=== PATIENT | male | born 1975 | race African-American/Black ===

== ENCOUNTER 2023-04-04 11:38 | Inpatient (IN) | payer OTHER ==
--- NOTE | 2023-04-04 13:07 | ED ---
Psych HPI - General Chief Complaint: Psychiatric Symptoms Stated Complaint: mental health Time Seen by Provider: 04/04/23 12:29 Source: police Mode of arrival: ambulatory - History of Present Illness Initial Comments: Patient is a 47-year-old man who is brought to emergency department to have psychiatric evaluation. The patient himself denies any complaints. He denies having depressed mood. Patient denies having suicidal or homicidal ideation. He states he would like to have reevaluation and go home Complaint: other -: days(s) Associated Psychiatric Symptoms: none Improves With: none Worsens With: none Associated Symptoms: denies other symptoms - Related Data Previous Rx's Medication Instructions Recorded OLANZapine ODT [ZyPREXA Zydis] 10 mg PO BID 30 Days #60 tab 04/09/23 Allergies Allergy/AdvReac Type Severity Reaction Status Date / Time Penicillins Allergy Unknown Verified 04/04/23 12:56 Childhood Pork/Porcine Containing Allergy Unknown Verified 04/04/23 12:56 Products [Pork] Review of Systems ROS Statement: Those systems with pertinent positive or pertinent negative responses have been documented in the HPI. ROS Other: All systems not noted in ROS Statement are negative. Constitutional: Denies: fever, chills Respiratory: Denies: cough, dyspnea Cardiovascular: Denies: chest pain, palpitations, syncope Gastrointestinal: Denies: abdominal pain, vomiting, diarrhea Genitourinary: Denies: dysuria, frequency Musculoskeletal: Denies: back pain Skin: Denies: rash Neurological: Denies: headache, weakness, numbness Past Medical History Past Medical History: No Reported History History of Any Multi-Drug Resistant Organisms: None Reported Past Surgical History: No Surgical Hx Reported Past Anesthesia/Blood Transfusion Reactions: No Reported Reaction Past Psychological History: No Psychological Hx Reported Smoking Status: Never smoker Past Alcohol Use History: None Reported Past Drug Use History: None Reported General Exam Limitations: no limitations General appearance: alert, in no apparent distress Head exam: Present: atraumatic, normocephalic Eye exam: Present: normal appearance. Absent: scleral icterus, conjunctival injection Neck exam: Present: normal inspection Respiratory exam: Present: normal lung sounds bilaterally. Absent: respiratory distress, wheezes, rales, rhonchi, stridor, accessory muscle use Cardiovascular Exam: Present: regular rate, normal rhythm, normal heart sounds. Absent: systolic murmur, diastolic murmur, rubs, gallop GI/Abdominal exam: Present: soft. Absent: distended, tenderness, guarding, rebound, rigid Extremities exam: Present: normal inspection, normal capillary refill. Absent: pedal edema, calf tenderness Back exam: Present: normal inspection. Absent: CVA tenderness (R), CVA tenderness (L) Neurological exam: Present: alert, oriented X3 Psychiatric exam: Absent: depressed, agitated, anxious, flat affect, homicidal ideation, suicidal ideation Skin exam: Present: warm, dry, intact, normal color. Absent: rash Course Vital Signs 04/04/23 04/04/23 04/04/23 11:42 15:00 17:57 Temperature 98.2 F Pulse Rate 100 94 Respiratory 20 18 20 Rate Blood Pressure 161/105 159/80 O2 Sat by Pulse 99 99 Oximetry Medical Decision Making - Medical Decision Making Was pt. sent in by a medical professional or institution (, PA, CARDIOTHORACIC SURGEON, urgent care, hospital, or [facility]...) When possible be specific @ -[No] Did you speak to anyone other than the patient for history (EMS, parent, family, police, friend...)? What history was obtained from this source @ -[No] Did you review nursing and triage notes (agree or disagree)? Why? @ -[I reviewed and agree with nursing and triage notes] Were old charts reviewed (outside hosp., previous admission, EMS record, old EKG , old radiological studies, urgent care reports/EKG's, [facility] records)? Report findings @ -[No old charts were reviewed] Differential Diagnosis (chest pain, altered mental status, abdominal pain women, abdominal pain men, vaginal bleeding, weakness, fever, dyspnea, syncope, headache, dizziness, GI bleed, back pain, seizure, CVA, palpatations, mental hea lth, musculoskeletal)? @ -[Differential Mental Health Depression, anxiety, bipolar, psychosis, schizophrenia, borderline personality, situational depression, adjustment disorder, behavioral disorder, brain tumor, malingering, substance abuse, encephalopathy, medication reaction, dementia, hypothyroidism, degenerative neurologic disorder, lupus.... This is not meant to be all-inclusive list EKG interpreted by me (3pts min.). @ -[ X-rays interpreted by me (1pt min.). @ -[None done] CT interpreted by me (1pt min.). @ -[None done] U/S interpreted by me (1pt. min.). @ -[None done] What testing was considered but not performed or refused? (CT, X-rays, U/S, labs)? Why? @ -[None] What meds were considered but not given or refused? Why? @ -[None] Did you discuss the management of the patient with other professionals (professionals i.e. , PA, CARDIOTHORACIC SURGEON, lab, RT, psych nurse, social worker aide, cable lacer, teacher, consumer loan officer, leather case finisher)? Give summary @ -[Case discussed with EPS personnel Was smoking cessation discussed for >3mins.? @ -[No] Was critical care preformed (if so, how long)? @ -[No] Were there social determinants of health that impacted care today? How? (Homelessness, low income, unemployed, alcoholism, drug addiction, transportation, low edu. Level, literacy, decrease access to med. care, custodial, rehab)? @ -[No] Was there de-escalation of care discussed even if they declined (Discuss DNR or withdrawal of care, Hospice)? DNR status @ -[No] What co-morbidities impacted this encounter? (DM, HTN, Smoking, COPD, CAD, Cancer, CVA, ARF, Chemo, Hep., AIDS, mental health diagnosis, sleep apnea, morbid obesity)? @ -[None] Was patient admitted / discharged? Hospital course, mention meds given and route, prescriptions, significant lab abnormalities, going to OR and other pertinent info. @ -[The patient will be admitted for further psychiatric care Undiagnosed new problem with uncertain prognosis? @ -[No] Drug Therapy requiring intensive monitoring for toxicity (Heparin, Nitro, Insulin, Cardizem)? @ -[No] Were any procedures done? @ -[No] Diagnosis/symptom? @ -[Acute psychosis Acute, or Chronic, or Acute on Chronic? @ -[default] Uncomplicated (without systemic symptoms) or Complicated (systemic symptoms)? @ -[Uncomplicated Side effects of treatment? @ -[No] Exacerbation, Progression, or Severe Exacerbation? @ -[No] Poses a threat to life or bodily function? How? (Chest pain, [place], [place], pneumonia, PE, COPD, DKA, ARF, appy, cholecystitis, CVA, Diverticulitis, Homicidal, Suicidal, threat to staff... and all critical care pts) @ -[No] - Lab Data Result diagrams: 04/04/23 15:59 04/04/23 15:59 Lab Results 04/04/23 04/04/23 04/04/23 Range/Units 15:59 15:59 15:59 WBC 6.5 (3.8-10.6) k/uL RBC 4.95 (4.30-5.90) m/uL Hgb 14.3 (13.0-17.5) gm/dL Hct 44.3 (39.0-53.0) % MCV 89.4 (80.0-100.0) fL MCH 28.8 (25.0-35.0) pg MCHC 32.2 (31.0-37.0) g/dL RDW 13.6 (11.5-15.5) % Plt Count 244 (150-450) k/uL MPV 7.4 Neutrophils % 63 % Lymphocytes % 25 % Monocytes % 6 % Eosinophils % 4 % Basophils % 0 % Neutrophils # 4.1 (1.3-7.7) k/uL Lymphocytes # 1.6 (1.0-4.8) k/uL Monocytes # 0.4 (0-1.0) k/uL Eosinophils # 0.3 (0-0.7) k/uL Basophils # 0.0 (0-0.2) k/uL Hypochromasia Slight Sodium 136 L (137-145) mmol/L Potassium 4.6 (3.5-5.1) mmol/L Chloride 104 (98-107) mmol/L Carbon Dioxide 24 (22-30) mmol/L Anion Gap 8 mmol/L BUN 16 (9-20) mg/dL Creatinine 0.91 (0.66-1.25) mg/dL Est GFR (CKD-EPI)AfAm >90 (>60 ml/min/1.73 sqM) Est GFR (CKD-EPI)NonAf >90 (>60 ml/min/1.73 sqM) Glucose 142 H (74-99) mg/dL Calcium 9.1 (8.4-10.2) mg/dL Total Bilirubin 0.4 (0.2-1.3) mg/dL AST 41 (17-59) U/L ALT 34 (4-49) U/L Alkaline Phosphatase 66 (38-126) U/L Total Protein 7.8 (6.3-8.2) g/dL Albumin 4.2 (3.5-5.0) g/dL Urine Color Urine Appearance (Clear) Urine pH (5.0-8.0) Ur Specific [place] (1.001-1.035) Urine Protein (Negative) Urine Glucose (UA) (Negative) Urine Ketones (Negative) Urine Blood (Negative) Urine Nitrite (Negative) Urine Bilirubin (Negative) Urine Urobilinogen (<2.0) mg/dL Ur Leukocyte Esterase (Negative) Urine Opiates Screen (NotDetected) Ur Oxycodone Screen (NotDetected) Urine Methadone Screen (NotDetected) Ur Propoxyphene Screen (NotDetected) Ur Barbiturates Screen (NotDetected) U Tricyclic Antidepress (NotDetected) Ur Phencyclidine Scrn (NotDetected) Ur Amphetamines Screen (NotDetected) U Methamphetamines Scrn (NotDetected) U Benzodiazepines Scrn (NotDetected) Urine Cocaine Screen (NotDetected) U Marijuana (THC) Screen (NotDetected) Coronavirus (PCR) Not Detected (Not Detectd) 04/04/23 04/04/23 Range/Units 16:29 16:29 WBC (3.8-10.6) k/uL RBC (4.30-5.90) m/uL Hgb (13.0-17.5) gm/dL Hct (39.0-53.0) % MCV (80.0-100.0) fL MCH (25.0-35.0) pg MCHC (31.0-37.0) g/dL RDW (11.5-15.5) % Plt Count (150-450) k/uL MPV Neutrophils % % Lymphocytes % % Monocytes % % Eosinophils % % Basophils % % Neutrophils # (1.3-7.7) k/uL Lymphocytes # (1.0-4.8) k/uL Monocytes # (0-1.0) k/uL Eosinophils # (0-0.7) k/uL Basophils # (0-0.2) k/uL Hypochromasia Sodium (137-145) mmol/L Potassium (3.5-5.1) mmol/L Chloride (98-107) mmol/L Carbon Dioxide (22-30) mmol/L Anion Gap mmol/L BUN (9-20) mg/dL Creatinine (0.66-1.25) mg/dL Est GFR (CKD-EPI)AfAm (>60 ml/min/1.73 sqM) Est GFR (CKD-EPI)NonAf (>60 ml/min/1.73 sqM) Glucose (74-99) mg/dL Calcium (8.4-10.2) mg/dL Total Bilirubin (0.2-1.3) mg/dL AST (17-59) U/L ALT (4-49) U/L Alkaline Phosphatase (38-126) U/L Total Protein (6.3-8.2) g/dL Albumin (3.5-5.0) g/dL Urine Color Yellow Urine Appearance Clear (Clear) Urine pH 5.5 (5.0-8.0) Ur Specific [place] 1.025 (1.001-1.035) Urine Protein Negative (Negative) Urine Glucose (UA) Negative (Negative) Urine Ketones Negative (Negative) Urine Blood Negative (Negative) Urine Nitrite Negative (Negative) Urine Bilirubin Negative (Negative) Urine Urobilinogen <2.0 (<2.0) mg/dL Ur Leukocyte Esterase Negative (Negative) Urine Opiates Screen Not Detected (NotDetected) Ur Oxycodone Screen Not Detected (NotDetected) Urine Methadone Screen Not Detected (NotDetected) Ur Propoxyphene Screen Not Detected (NotDetected) Ur Barbiturates Screen Not Detected (NotDetected) U Tricyclic Antidepress Not Detected (NotDetected) Ur Phencyclidine Scrn Not Detected (NotDetected) Ur Amphetamines Screen Not Detected (NotDetected) U Methamphetamines Scrn Not Detected (NotDetected) U Benzodiazepines Scrn Not Detected (NotDetected) Urine Cocaine Screen Not Detected (NotDetected) U Marijuana (THC) Screen Not Detected (NotDetected) Coronavirus (PCR) (Not Detectd) Disposition Clinical Impression: Acute psychosis Disposition: ADMITTED IP TO THIS [facility] Condition: Stable Is patient prescribed a controlled substance at d/c from ED?: No
[2023-04-04 16:07] LABS: Basophils % (A) 0 %; Eosinophils # (A) 0.3 k/uL (0-0.7); Eosinophils % (A) 4 %; HCT 44.3 % (39.0-53.0); HGB 14.3 gm/dL (13.0-17.5); Hypochromasia Slight; Lymphocytes # (A) 1.6 k/uL (1.0-4.8); Lymphocytes % (A) 25 %; MCH 28.8 pg (25.0-35.0); MCHC 32.2 g/dL (31.0-37.0); MCV 89.4 fL (80.0-100.0); Mean Platelet Volume 7.4; Monocytes # (A) 0.4 k/uL (0-1.0); Monocytes % (A) 6 %; Neutrophils # (A) 4.1 k/uL (1.3-7.7); Neutrophils % (A) 63 %; Platelet Count 244 k/uL (150-450); RBC 4.95 m/uL (4.30-5.90); RDW 13.6 % (11.5-15.5); WBC 6.5 k/uL (3.8-10.6)
[2023-04-04 16:28] LABS: ALT 34 U/L (4-49); AST 41 U/L (17-59); African American GFR (CKD) >90 (>60 ml/min/1.73 sqM); Albumin 4.2 g/dL (3.5-5.0); Alkaline Phosphatase 66 U/L (38-126); Anion Gap 8 mmol/L; Blood Urea Nitrogen 16 mg/dL (9-20); Calcium 9.1 mg/dL (8.4-10.2); Carbon Dioxide 24 mmol/L (22-30); Chloride 104 mmol/L (98-107); Glucose 142 mg/dL (74-99); Non-African American GFR(CKD) >90 (>60 ml/min/1.73 sqM); Potassium 4.6 mmol/L (3.5-5.1); Sodium 136 mmol/L (137-145); Total Bilirubin 0.4 mg/dL (0.2-1.3); Total Protein 7.8 g/dL (6.3-8.2)
[2023-04-04 16:44] LABS: Appearance,Urine Clear (Clear); Bilirubin,Urine Negative (Negative); Blood,Urine Negative (Negative); Color,Urine Yellow; Glucose,Urine (UA) Negative (Negative); Ketones,Urine Negative (Negative); Leukocyte Esterase,Urine Negative (Negative); Nitrite,Urine Negative (Negative); PH, Urine 5.5 (5.0-8.0); Protein,Urine Negative (Negative); Specific Gravity,Urine 1.025 (1.001-1.035); Urobilinogen,Urine <2.0 mg/dL (<2.0)
[2023-04-04 16:53] LABS: Amphetamine Screen,Urine Not Detected (NotDetected); Barbiturate Screen,Urine Not Detected (NotDetected); Benzodiazepines Screen,Urine Not Detected (NotDetected); Cocaine Screen,Urine Not Detected (NotDetected); Methadone Screen, Urine Not Detected (NotDetected); Opiate Screen,Urine Not Detected (NotDetected); Oxycodone Screen, Urine Not Detected (NotDetected); Phencyclidine Screen,Urine Not Detected (NotDetected); Tricyclic Antidepressant,Urine Not Detected (NotDetected); Urn Cannabinoid Scrn Not Detected (NotDetected)
[2023-04-04] MEDS ORDERED: LORazepam 1 MG TAB PO STA (17:52)
[2023-04-04] MEDS ORDERED: MAGNESIUM HYDROXIDE 2,400 MG/30 ML CUP PO PRN (17:59)
[2023-04-04] MEDS ORDERED: MAG HYDROX/AL HYDROX/SIMETH 30 ML CUP PO PRN (17:59)
[2023-04-04] MEDS ORDERED: ACETAMINOPHEN TAB 325 MG TAB PO PRN (17:59)
[2023-04-04] MEDS ORDERED: LORazepam 2 MG/ML INJ IM PRN (18:03)
[2023-04-04] MEDS ORDERED: LORazepam 1 MG TAB PO PRN (18:03)
[2023-04-04] MEDS ORDERED: HALOPERIDOL LACTATE 5 MG/ML 1 ML VIAL IM PRN (18:04)
[2023-04-04] MEDS ORDERED: haloperidoL 5 MG TAB PO PRN (18:05)
[2023-04-04 18:29] VITALS: RESP 16
--- NOTE | 2023-04-05 02:55 | P.CONS ---
History of Present Illness - Reason for Consult Consult date: 04/04/23 medical eval - Chief Complaint psych eval - History of Present Illness 47 year old male with no reported past medical history patient refused medical evaluation case discussed with RN and ED chart review done . patient has been disoriented and wandering around town , eventually was brought in by police for evaluation, patient denies any suicidal or homicidal ideation, but voiced paranoid del lusions about people trying to harm him . Review of systems unable to obtain patient refuse interview On physical exam patient declined Constitutional: No acute distress, patient well built , well nourished, uncooperative Skin: visible portion of the skin unremarkable Extremities: moving all extremities purposefully Psychiatric: Alert and oriented to person, place Past Medical History Past Medical History: No Reported History History of Any Multi-Drug Resistant Organisms: None Reported Past Surgical History: No Surgical Hx Reported Past Anesthesia/Blood Transfusion Reactions: No Reported Reaction Past Psychological History: No Psychological Hx Reported Smoking Status: Never smoker Past Alcohol Use History: None Reported Past Drug Use History: None Reported Medications and Allergies Home Medications Medication Instructions Recorded Confirmed Type No Known Home Medications 04/04/23 04/04/23 History Allergies Allergy/AdvReac Type Severity Reaction Status Date / Time Penicillins Allergy Unknown Verified 04/04/23 12:56 Childhood Pork/Porcine Containing Allergy Unknown Verified 04/04/23 12:56 Products [Pork] Physical Exam Vitals: Vital Signs Temp Pulse Pulse Resp BP BP Pulse Ox 04/04/23 18:26 97.1 F L 79 16 164/87 99 04/04/23 17:57 94 20 159/80 99 04/04/23 15:00 18 04/04/23 11:42 98.2 F 100 20 161/105 99 Intake and Output 04/04/23 04/04/23 04/05/23 14:59 22:59 06:59 Other: Weight 113.398 kg Results CBC & Chem 7: 04/04/23 15:59 04/04/23 15:59 Labs: Abnormal Lab Results - Last 24 Hours (Table) 04/04/23 Range/Units 15:59 Sodium 136 L (137-145) mmol/L Glucose 142 H (74-99) mg/dL Assessment and Plan Assessment: dellusional ideation psych eval pending blood work review showed unremarkable CBC Hgb 14.3, WBC 6.5 electrolytes unremarkable , Na 136, K 4.6 , BUN 16 , Cr 0.9 urine drug screen is negative UA unremarkable COVID negative thank you for this consultation
[2023-04-05] MEDS ORDERED: HALOPERIDOL LACTATE 5 MG/ML 1 ML VIAL IM STA (08:00)
[2023-04-05] MEDS ORDERED: LORazepam 2 MG/ML INJ IM STA (08:01)
--- NOTE | 2023-04-05 09:53 | P.HP ---
Psychiatric H&P - . H&P Date: 04/05/23 History & Physical: Allergies Allergy/AdvReac Type Severity Reaction Status Date / Time Penicillins Allergy Unknown Verified 04/04/23 12:56 Childhood Pork/Porcine Containing Allergy Unknown Verified 04/04/23 12:56 Products [Pork] Vital Signs Temp 99.4 F 04/05/23 06:47 Pulse 80 04/05/23 06:47 Resp 16 04/05/23 06:47 BP 127/62 04/05/23 06:47 Pulse Ox 99 04/04/23 18:26 FiO2 Intake & Output 04/04/23 04/05/23 04/05/23 18:59 06:59 18:59 Weight 113.398 kg 106.71 kg Laboratory Last Values WBC 6.5 k/uL (3.8-10.6) 04/04/23 15:59 RBC 4.95 m/uL (4.30-5.90) 04/04/23 15:59 Hgb 14.3 gm/dL (13.0-17.5) 04/04/23 15:59 Hct 44.3 % (39.0-53.0) 04/04/23 15:59 MCV 89.4 fL (80.0-100.0) 04/04/23 15:59 MCH 28.8 pg (25.0-35.0) 04/04/23 15:59 MCHC 32.2 g/dL (31.0-37.0) 04/04/23 15:59 RDW 13.6 % (11.5-15.5) 04/04/23 15:59 Plt Count 244 k/uL (150-450) 04/04/23 15:59 MPV 7.4 04/04/23 15:59 Neutrophils % 63 % 04/04/23 15:59 Lymphocytes % 25 % 04/04/23 15:59 Monocytes % 6 % 04/04/23 15:59 Eosinophils % 4 % 04/04/23 15:59 Basophils % 0 % 04/04/23 15:59 Neutrophils # 4.1 k/uL (1.3-7.7) 04/04/23 15:59 Lymphocytes # 1.6 k/uL (1.0-4.8) 04/04/23 15:59 Monocytes # 0.4 k/uL (0-1.0) 04/04/23 15:59 Eosinophils # 0.3 k/uL (0-0.7) 04/04/23 15:59 Basophils # 0.0 k/uL (0-0.2) 04/04/23 15:59 Hypochromasia Slight 04/04/23 15:59 Sodium 136 mmol/L (137-145) L 04/04/23 15:59 Potassium 4.6 mmol/L (3.5-5.1) 04/04/23 15:59 Chloride 104 mmol/L (98-107) 04/04/23 15:59 Carbon Dioxide 24 mmol/L (22-30) 04/04/23 15:59 Anion Gap 8 mmol/L 04/04/23 15:59 BUN 16 mg/dL (9-20) 04/04/23 15:59 Creatinine 0.91 mg/dL (0.66-1.25) 04/04/23 15:59 Est GFR (CKD-EPI)AfAm >90 (>60 ml/min/1.73 sqM) 04/04/23 15:59 Est GFR (CKD-EPI)NonAf >90 (>60 ml/min/1.73 sqM) 04/04/23 15:59 Glucose 142 mg/dL (74-99) H 04/04/23 15:59 Calcium 9.1 mg/dL (8.4-10.2) 04/04/23 15:59 Total Bilirubin 0.4 mg/dL (0.2-1.3) 04/04/23 15:59 AST 41 U/L (17-59) 04/04/23 15:59 ALT 34 U/L (4-49) 04/04/23 15:59 Alkaline Phosphatase 66 U/L (38-126) 04/04/23 15:59 Total Protein 7.8 g/dL (6.3-8.2) 04/04/23 15:59 Albumin 4.2 g/dL (3.5-5.0) 04/04/23 15:59 Urine Color Yellow 04/04/23 16:29 Urine Appearance Clear (Clear) 04/04/23 16:29 Urine pH 5.5 (5.0-8.0) 04/04/23 16:29 Ur Specific [place] 1.025 (1.001-1.035) 04/04/23 16:29 Urine Protein Negative (Negative) 04/04/23 16:29 Urine Glucose (UA) Negative (Negative) 04/04/23 16:29 Urine Ketones Negative (Negative) 04/04/23 16:29 Urine Blood Negative (Negative) 04/04/23 16:29 Urine Nitrite Negative (Negative) 04/04/23 16:29 Urine Bilirubin Negative (Negative) 04/04/23 16:29 Urine Urobilinogen <2.0 mg/dL (<2.0) 04/04/23 16:29 Ur Leukocyte Esterase Negative (Negative) 04/04/23 16:29 Urine Opiates Screen Not Detected (NotDetected) 04/04/23 16:29 Ur Oxycodone Screen Not Detected (NotDetected) 04/04/23 16:29 Urine Methadone Screen Not Detected (NotDetected) 04/04/23 16:29 Ur Propoxyphene Screen Not Detected (NotDetected) 04/04/23 16:29 Ur Barbiturates Screen Not Detected (NotDetected) 04/04/23 16:29 U Tricyclic Antidepress Not Detected (NotDetected) 04/04/23 16:29 Ur Phencyclidine Scrn Not Detected (NotDetected) 04/04/23 16:29 Ur Amphetamines Screen Not Detected (NotDetected) 04/04/23 16:29 U Methamphetamines Scrn Not Detected (NotDetected) 04/04/23 16:29 U Benzodiazepines Scrn Not Detected (NotDetected) 04/04/23 16:29 Urine Cocaine Screen Not Detected (NotDetected) 04/04/23 16:29 U Marijuana (THC) Screen Not Detected (NotDetected) 04/04/23 16:29 Coronavirus (PCR) Not Detected (Not Detectd) 04/04/23 15:59 04/05/23 09:37 This is the psychiatric assessment on Rhys Odom who is a 47-year-old -[place] male and was brought in on the unit involuntarily Patient started to tagalong this physician when I entered the unit and would not leave my side Patient continued to escalate getting louder and louder He then ran back to his room and brought back the papers that were given to him by the police. He started to read every Patient reported that they were all lies and that the police had conspired against him to get him in trouble Report showed that the patient was trying to convince the police to set up a task force to go after certain group of people that he felt was repeatedly asked if he could talk his personal stuff responsible for stealing his car Patient was repeatedly asked to discuss this further in the room in a quieter state where he continues to become louder and louder in the lobby and seemed to get more more agitated Patient could not be redirected and now started to persecute this physician and started to threaten him as well as become more more paranoid and angry Eventually the security was called and where patient was tried to be redirected to his room It took more than half an hour before the patient was eventually taken to the room and agreed to have a shot of Haldol and Ativan The further information is available on this patient at this time Past history personal social history could not be collected at this time Patient doing is rambling thought processes had mentioned that he was brought in here about a month ago under similar circumstances but did not give any other information He states that he does not have any mental illness and does not take any medications Mental status examination: Reveals a tall well-built -[place] male was loud easily agitated angry projective and paranoid Patient was across as very suspicious projective and intimidating and threatening Patient is difficult to be redirected Patient exhibits poor judgment and insights He comes across as paranoid and projective Asians formal and operational judgment and insight are impaired Patient is a high risk to himself and others General Appearance: Patient appears to be short in stature, short hair, glasses, stated age is alert, directable, and attempts to cooperate. Patient appears to have fair hygiene and grooming. Behavior: Patient is seated without any agitated behavior. mildly irritable. Speech: Patient's speech is fluent and nonpressured. Mood/Affect: Patient reports their mood is depressed and anxious, affect is congruent and constricted. Suicidality/Homicidality: Patient denies having any homicidal ideation intent or plan. Denies any suicidal ideations intent or plan Perceptions: Patient denies any visual hallucinations and denies any auditory hallucinations Though content/process: There is no evidence of any delusional thought content and thought process is linear and goal-directed. [place]. Memory and concentration: AOX3, grossly intact for the purposes of this session. Can spell "WORLD" backwards Judgment and insight: poor/impulsive STRENGTHS/WEAKNESSES: strength is that patient is resilient. Weakness is that patient has poor judgment and is impulsive INTELLECT: average IMPRESSIONS: Major depressive disorder, recurrent, without psychotic features Borderline personality disorder Cannabis use disorder Nicotine dependence PLAN: -Patient is admitted under involuntary status to [facility] for stabilization of psychiatric symptoms and safety. -Medications : Will start patient on lithium 150 mg twice a day for mood stabilization/suicidal thoughts, Cymbalta 30 mg daily at bedtime for anxiety/mood -Ativan and Haldol PRN for agitation/aggression -Internal Medicine consult to perform medical evaluation and physical. -NRT - nicotine patch -SW on board for discharge planning. Encourage patient to participate in groups to work on coping skills. Vitaliy Cool M.D.
[2023-04-05] MEDS: NICOTINE 14MG/24HR PATCH TRANSDERM SCH (10:38)
[2023-04-06] MEDS ORDERED: chlorproMAZINE 25 MG TAB PO PRN (10:00)
[2023-04-06] MEDS ORDERED: chlorproMAZINE 25 MG/ML 2 ML AMP IM PRN (10:00)
[2023-04-06] MEDS ORDERED: OLANZapine ODT 5 MG TAB PO STA (10:01)
[2023-04-06] MEDS: NICOTINE 14MG/24HR PATCH TRANSDERM SCH (11:27)
[2023-04-06 11:30] VITALS: PULSE 98; TEMP 97.6
--- NOTE | 2023-04-06 12:41 | P.PN ---
Progress Note - Text Progress Note Date: 04/06/23 Interval History: Patient was seen wandering the hallways and was directable and agreeable to speak with proposal manager writer in the office. The patient continues to be very concerned regarding what he believes to be "a gross injustice against me." The patient continues to report that the police authorities as well as the union and everyone has been acting against him as part of a "RICO conspiracy." The patient was quite elevated yesterday and required administration of Haldol and A tivan in order to calm down. The patient firmly believes that he does not require any treatment. He expresses that he has been targeted. Despite this, the patient expresses no desire for harm to self or others. He vehemently denies any suicidal or homicidal ideation, intention, and/or plan. He reports no auditory or visual hallucinations. He endorses numerous paranoid delusions however these are particularly targeted towards and teasing people or preventing him from financial success. He does not present with any overtly bizarre or magical thinking. The patient states that he will do anything to be discharged as soon as possible. He is agreeable to restarting Zyprexa today. Mental Status Exam: General Appearance: Patient appears to be stated age is alert, difficult to direct but cooperates. Behavior: She displays elevated psychomotor activity. Speech: Patient's speech is fluent and nonpressured. Hyperverbal and loud in volume. Interruptible. Mood/Affect: Mood is "I don't need to be in here." Affect is intense and expansive. Suicidality/Homicidality: Patient is not reporting any suicidal or homicidal ideation, intention, and/or plan. Perceptions: The patient does not report any auditory or visual hallucinations. Though content/process: The patient endorses paranoid delusions and persecutory delusions. Thought process is linear and future and goal oriented. Memory and concentration: AOX3, grossly intact for the purposes of this session Judgment and insight: Poor Vital Signs Temp 97.6 F 04/06/23 11:29 Pulse 98 04/06/23 11:29 Resp 16 04/06/23 11:29 BP 182/95 04/06/23 11:29 Pulse Ox 97 04/06/23 11:29 FiO2 Intake & Output 04/05/23 04/06/23 04/06/23 18:59 06:59 18:59 Weight 106.71 kg Delusional disorder, persecutory type Rule out borderline personality disorder Cannabis use disorder Nicotine dependence Plan: -Patient continues to meet criteria for inpatient psychiatric admission for symptom stabilization and safety. The patient has been petitioned and certified and a second clinical certificate has been filled out for the court. -Medications: We will start Zyprexa 5 mg in the morning and 10 mg at bedtime for management of delusional disorder -When necessary Ativan and endorsing for agitation/aggression. -NRT - nicotine patch -SW on board for discharge planning. Encouraged the patient to participate in milieu.
[2023-04-06] MEDS ORDERED: OLANZapine ODT 10 MG TAB PO SCH (21:00)
[2023-04-07] MEDS: NICOTINE 14MG/24HR PATCH TRANSDERM SCH (08:34)
[2023-04-07] MEDS ORDERED: OLANZapine ODT 5 MG TAB PO SCH (09:00)
--- NOTE | 2023-04-07 11:08 | P.PN ---
Progress Note - Text Progress Note Date: 04/07/23 Interval History: Patient was seen wandering the hallways and was directable and agreeable to speak with ad copy writer in the office. Patient is currently not reporting any suicidal or homicidal ideation, intention, and/or plan. He is not reporting any auditory or visual hallucinations. He continues to endorse significant paranoia and respiratory delusions towards multiple and keys including the insurance companies, [employer], and the police authorities in the [place] area. He expresses that they have been trying to "run me out of town." He states that they believe him to be a transient however he states that he is "here to stay and has been working very hard to buy a house." He has been adherent with his medication is not reporting any significant side effects. Mental Status Exam: General Appearance: Patient appears to be stated age is alert, much more direct able and cooperative. Behavior: Patient displays normal psychomotor activity. Speech: Patient's speech is fluent and nonpressured. Hyperverbal but normal in volume. Mood/Affect: Mood is "I'm doing okay." Affect is much more calm and with appropriate range Suicidality/Homicidality: Patient is not reporting any suicidal or homicidal ideation, intention, and/or plan. Perceptions: The patient does not report any auditory or visual hallucinations. Though content/process: The patient endorses paranoid delusions and persecutory delusions. Thought process is linear and future and goal oriented. Memory and concentration: AOX3, grossly intact for the purposes of this session Judgment and insight: Poor Vital Signs Temp 97.6 F 04/06/23 11:29 Pulse 98 04/06/23 11:29 Resp 16 04/06/23 11:29 BP 182/95 04/06/23 11:29 Pulse Ox 97 04/06/23 11:29 FiO2 Laboratory Results WBC 6.5 k/uL (3.8-10.6) 04/04/23 15:59 RBC 4.95 m/uL (4.30-5.90) 04/04/23 15:59 Hgb 14.3 gm/dL (13.0-17.5) 04/04/23 15:59 Hct 44.3 % (39.0-53.0) 04/04/23 15:59 MCV 89.4 fL (80.0-100.0) 04/04/23 15:59 MCH 28.8 pg (25.0-35.0) 04/04/23 15:59 MCHC 32.2 g/dL (31.0-37.0) 04/04/23 15:59 RDW 13.6 % (11.5-15.5) 04/04/23 15:59 Plt Count 244 k/uL (150-450) 04/04/23 15:59 MPV 7.4 04/04/23 15:59 Neutrophils % 63 % 04/04/23 15:59 Lymphocytes % 25 % 04/04/23 15:59 Monocytes % 6 % 04/04/23 15:59 Eosinophils % 4 % 04/04/23 15:59 Basophils % 0 % 04/04/23 15:59 Neutrophils # 4.1 k/uL (1.3-7.7) 04/04/23 15:59 Lymphocytes # 1.6 k/uL (1.0-4.8) 04/04/23 15:59 Monocytes # 0.4 k/uL (0-1.0) 04/04/23 15:59 Eosinophils # 0.3 k/uL (0-0.7) 04/04/23 15:59 Basophils # 0.0 k/uL (0-0.2) 04/04/23 15:59 Hypochromasia Slight 04/04/23 15:59 Sodium 136 mmol/L (137-145) L 04/04/23 15:59 Potassium 4.6 mmol/L (3.5-5.1) 04/04/23 15:59 Chloride 104 mmol/L (98-107) 04/04/23 15:59 Carbon Dioxide 24 mmol/L (22-30) 04/04/23 15:59 Anion Gap 8 mmol/L 04/04/23 15:59 BUN 16 mg/dL (9-20) 04/04/23 15:59 Creatinine 0.91 mg/dL (0.66-1.25) 04/04/23 15:59 Est GFR (CKD-EPI)AfAm >90 (>60 ml/min/1.73 sqM) 04/04/23 15:59 Est GFR (CKD-EPI)NonAf >90 (>60 ml/min/1.73 sqM) 04/04/23 15:59 Glucose 142 mg/dL (74-99) H 04/04/23 15:59 Calcium 9.1 mg/dL (8.4-10.2) 04/04/23 15:59 Total Bilirubin 0.4 mg/dL (0.2-1.3) 04/04/23 15:59 AST 41 U/L (17-59) 04/04/23 15:59 ALT 34 U/L (4-49) 04/04/23 15:59 Alkaline Phosphatase 66 U/L (38-126) 04/04/23 15:59 Total Protein 7.8 g/dL (6.3-8.2) 04/04/23 15:59 Albumin 4.2 g/dL (3.5-5.0) 04/04/23 15:59 Urine Color Yellow 04/04/23 16:29 Urine Appearance Clear (Clear) 04/04/23 16:29 Urine pH 5.5 (5.0-8.0) 04/04/23 16:29 Ur Specific [place] 1.025 (1.001-1.035) 04/04/23 16:29 Urine Protein Negative (Negative) 04/04/23 16:29 Urine Glucose (UA) Negative (Negative) 04/04/23 16:29 Urine Ketones Negative (Negative) 04/04/23 16:29 Urine Blood Negative (Negative) 04/04/23 16:29 Urine Nitrite Negative (Negative) 04/04/23 16:29 Urine Bilirubin Negative (Negative) 04/04/23 16:29 Urine Urobilinogen <2.0 mg/dL (<2.0) 04/04/23 16:29 Ur Leukocyte Esterase Negative (Negative) 04/04/23 16:29 Urine Opiates Screen Not Detected (NotDetected) 04/04/23 16:29 Ur Oxycodone Screen Not Detected (NotDetected) 04/04/23 16:29 Urine Methadone Screen Not Detected (NotDetected) 04/04/23 16:29 Ur Propoxyphene Screen Not Detected (NotDetected) 04/04/23 16:29 Ur Barbiturates Screen Not Detected (NotDetected) 04/04/23 16:29 U Tricyclic Antidepress Not Detected (NotDetected) 04/04/23 16:29 Ur Phencyclidine Scrn Not Detected (NotDetected) 04/04/23 16:29 Ur Amphetamines Screen Not Detected (NotDetected) 04/04/23 16:29 U Methamphetamines Scrn Not Detected (NotDetected) 04/04/23 16:29 U Benzodiazepines Scrn Not Detected (NotDetected) 04/04/23 16:29 Urine Cocaine Screen Not Detected (NotDetected) 04/04/23 16:29 U Marijuana (THC) Screen Not Detected (NotDetected) 04/04/23 16:29 Coronavirus (PCR) Not Detected (Not Detectd) 04/04/23 15:59 Assessment: Delusional disorder, persecutory type Rule out borderline personality disorder Cannabis use disorder Nicotine dependence Plan: -Patient continues to meet criteria for inpatient psychiatric admission for symptom stabilization and safety. The patient has been petitioned and certified and a second clinical certificate has been filled out for the court. -Medications: Increase Zyprexa to 10 mg ODT twice a day for management of delusional disorder -When necessary Ativan and endorsing for agitation/aggression. -NRT - nicotine patch -SW on board for discharge planning. Encouraged the patient to participate in milieu.
[2023-04-07] MEDS: OLANZapine ODT 10 MG TAB PO SCH (20:36)
[2023-04-08] MEDS: OLANZapine ODT 10 MG TAB PO SCH ×2 (08:32→21:32)
--- NOTE | 2023-04-08 11:37 | P.PN ---
Progress Note - Text Progress Note Date: 04/08/23 Interval History: Patient was seen wandering the hallways and was directable and agreeable to speak with parts data writer in the office. Patient is currently not reporting any suicidal or homicidal ideation, intention, and/or plan. He is not reporting any auditory or visual hallucinations. He continues to endorse significant paranoia and persecutory delusions towards multiple and keys including the insurance companies, [employer], and police. He however is directable. He is focused on discharge. He reports no issues regarding sleep or appetite. He reports no side effects of his medications and has been adherent. He reports no medical issues or concerns and denies any chest pain, SOB, palpitations, or nausea/vomiting. Mental Status Exam: General Appearance: Patient appears to be stated age is alert, much more directable and cooperative. Behavior: Patient displays normal psychomotor activity. Speech: Patient's speech is fluent and nonpressured. Hyperverbal but normal in volume. Mood/Affect: Mood is "I'm fine. Just ready to leave here so I can work." Affect is calm and with appropriate range Suicidality/Homicidality: Patient is not reporting any suicidal or homicidal ideation, intention, and/or plan. Perceptions: The patient does not report any auditory or visual hallucinations. Though content/process: The patient endorses paranoid delusions and persecutory delusions. Thought process is linear and future and goal oriented. Memory and concentration: AOX3, grossly intact for the purposes of this session Judgment and insight: Poor Vital Signs Temp 97.6 F 04/06/23 11:29 Pulse 98 04/06/23 11:29 Resp 16 04/06/23 11:29 BP 182/95 04/06/23 11:29 Pulse Ox 97 04/06/23 11:29 FiO2 Assessment: Delusional disorder, persecutory type Rule out borderline personality disorder Cannabis use disorder Nicotine dependence Plan: -Patient continues to meet criteria for inpatient psychiatric admission for symptom stabilization and safety. The patient has been petitioned and certified and a second clinical certificate has been filled out for the court. -Medications: Continue Zyprexa 10 mg ODT twice a day for management of delusional disorder -When necessary Ativan and endorsing for agitation/aggression. -NRT - nicotine patch -SW on board for discharge planning. Encouraged the patient to participate in milieu.
[2023-04-08 13:56] VITALS: BP 167/103
[2023-04-09] MEDS: OLANZapine ODT 10 MG TAB PO SCH (08:20)
--- NOTE | 2023-04-09 11:35 | P.DS ---
Providers Date of admission: 04/04/23 17:39 Expected date of discharge: 04/09/23 Attending physician: Adriano Painter MD Consults: 04/04/23 17:59 Consult Physician Routine Consulting Provider: Bushra Perez Consult Reason/Comments: medical management Do you want consulting provider notified?: Yes Primary care physician: Stated None - Discharge Diagnosis(es) (1) Delusional disorder, persecutory type Current Visit: Yes Status: Acute Priority: High (2) Nicotine dependence Current Visit: Yes Status: Chronic Priority: Low Hospital Course: Admission HPI: Initial psychiatric evaluation was completed by Dr. Cool who wrote: This is the psychiatric assessment on Rhys Odom who is a 47-year-old -[place] male and was brought in on the unit involuntarily Patient started to tagalong this physician when I entered the unit and would not leave my side Patient continued to escalate getting louder and louder He then ran back to his room and brought back the papers that were given to him by the police. He started to read every Patient reported that they were all lies and that the police had conspired against him to get him in trouble Report showed that the patient was trying to convince the police to set up a task force to go after certain group of people that he felt was repeatedly asked if he could talk his personal stuff responsible for stealing his car Patient was repeatedly asked to discuss this further in the room in a quieter state where he continues to become louder and louder in the lobby and seemed to get more more agitated Patient could not be redirected and now started to persecute this physician and started to threaten him as well as become more more paranoid and angry Eventually the security was called and where patient was tried to be redirected to his room It took more than half an hour before the patient was eventually taken to the room and agreed to have a shot of Haldol and Ativan The further information is available on this patient at this time Past history personal social history could not be collected at this time Patient doing is rambling thought processes had mentioned that he was brought in here about a month ago under similar circumstances but did not give any other information He states that he does not have any mental illness and does not take any medications Hospital course: Upon admission to the unit patient was initially presenting as irritable, demanding, and pressured. He was difficult to redirect and require IM medication to calm down. He was petitioned and certified and second clinical certificate was filled out for the court. Patient did eventually agree to start treatment with zyprexa as he has taken the medication before. Patient got along well with other patients on the unit and followed unit protocol. Patient was compliant with the medications and denied any side effects throughout hospital course. Patient became less intense regarding his delusions and was much more directable with the titration of his zyprexa. He was educated on the involuntary process and expressed a desire to defer mental health court. He states he would take his medication and follow-up as it would give him the opportunity to speak with people who can advocate on his behalf ([facility]) . Patient spoke of his stressors and engaged in therapy both group and individual. Patient was also seen by medical team for history and physical exam. Although the patient remained delusional, he did not overtly endorse any bizarre delusional thought content. He never endorsed any threats of violence or any thoughts of self harm. He was future and goal oriented with plans to save money and purchase a home in the [facility] so that he would no longer be homeless. On the day of discharge, the patient is not reporting any suicidal or homicidal ideation, intention, and/or plan. He is not reporting any auditory or visual hallucinations. He repor ts paranoia towards the [employer], the police, and various government agencies in the [facility]. However he does not threaten violence or harm. He reports wanting to live and be successful. No overtly bizarre delusional thought content is endorsed. No reported ideas of reference, thought insertion, thought projection, thought deletion, or delusions of surveillance. The patient does not have a significant history of substance abuse however was counseled on abstaining from all substances including alcohol, marijuana, tobacco, and all illicit drugs. The patient was counseled on his medications and the importance of regular outpatient follow-up, especially in the context of the deferral. He reported no medical issues or concerns in the day of discharge and denied any chest pain, shortness of breath, palpitations, muscle tightness, akathisia, or tardive dyskinesia. As the patient no longer met criteria for continued inpatient psychiatric hospitalization, he was subsequently discharged. After deferral, the patient was discharged. Mental status exam: General Appearance: Patient appears to be stated age is alert, pleasant, and cooperative. Patient is in no acute distress and has fair hygiene and grooming Behavior: Patient is calmly seated without any agitated behavior. Speech: Patient's speech is fluent and nonpressured. Mood/Affect: Patient reports their mood is "I feel good and ready to go home", affect is congruent and euthymic. Suicidality/Homicidality: Patient denies having any suicidal or homicidal ideation intent or plan. Perceptions: Patient denies any auditory or visual hallucinations. Though content/process: The patient does endorse paranoia towards various government agencies however does not report any overt bizarre delusional thought content. Patient is future and goal oriented. Memory and concentration: AOX3, grossly intact for the purposes of this session. Can spell "WORLD" backwards correctly. Judgment and insight: Improved with guarded prognosis Impression: Delusional disorder, persecutory type Nicotine Dependence Plan: -Continue with discharge today as patient has improved and stabilized psychiatrically and is not currently an imminent threat to himself and/or others. Patient will remain elevated risk of unintentional harm to self or others due to the severity of his delusional disorder. By nature, the goal of treatment for delusional disorder would only be to temper the intensity of the patient's reaction to delusions. Completely erasing the delusion is unlikely. The patient has displayed significant improvement in his ability to interact with staff and peers with the addition of Zyprexa and has been adherent with the medication. -Continue medications: Zyprexa zydis 10 mg ODT twice a day for delusional disorder -Patient was counseled on the need for medication compliance and appropriate follow-up at mental health and also primary care for medical issues. Patient verbalized understanding and agreed. -Social work to arrange for and conduct family meeting to ensure safety upon discharge and answer any questions/concerns. Social work also to arrange for patients follow up appointments with [facility] for psychiatric care along with follow up with primary care provider. -Patient counseled on abstaining from recreational drugs and tobacco, marijuana, and alcohol. Was informed/educated on the adverse effects on their physical and mental health. Patient verbally agreed and understood. -Patient was instructed to return to the hospital or seek immediate medical care if their psychiatric or medical symptoms do worsen or reoccur. -Psychoeducation and supportive therapy provided to patient. Risks and benefits of pharmacological treatment versus the risks and benefits of nontreatment weighed and discussed. Informed consent discussion held. Common side effects of psychotropics discussed such as, but not limited to headache, GI disturbance, sexual dysfunction, movement disorders, sedation, and orthostatic hypotension. Life threatening and blackbox warnings of prescribed medications also discussed. Potential risks of operating a vehicle or heavy machinery discussed with patient at length. Advised on importance of compliance and a reliable and responsible manner. Patient advised to review FDA consumer labeling of all medications prior to taking. Patient verbalized understanding of potential risks, and agrees with current treatment plan. Patient advised to medically contact physician/emergency personnel if any acute changes in condition occur. Vital Signs Temp 97.6 F 04/08/23 13:55 Pulse 98 04/06/23 11:29 Resp 16 04/08/23 13:55 BP 167/103 04/08/23 13:55 Pulse Ox 98 04/08/23 13:55 FiO2 Laboratory Results WBC 6.5 k/uL (3.8-10.6) 04/04/23 15:59 RBC 4.95 m/uL (4.30-5.90) 04/04/23 15:59 Hgb 14.3 gm/dL (13.0-17.5) 04/04/23 15:59 Hct 44.3 % (39.0-53.0) 04/04/23 15:59 MCV 89.4 fL (80.0-100.0) 04/04/23 15:59 MCH 28.8 pg (25.0-35.0) 04/04/23 15:59 MCHC 32.2 g/dL (31.0-37.0) 04/04/23 15:59 RDW 13.6 % (11.5-15.5) 04/04/23 15:59 Plt Count 244 k/uL (150-450) 04/04/23 15:59 MPV 7.4 04/04/23 15:59 Neutrophils % 63 % 04/04/23 15:59 Lymphocytes % 25 % 04/04/23 15:59 Monocytes % 6 % 04/04/23 15:59 Eosinophils % 4 % 04/04/23 15:59 Basophils % 0 % 04/04/23 15:59 Neutrophils # 4.1 k/uL (1.3-7.7) 04/04/23 15:59 Lymphocytes # 1.6 k/uL (1.0-4.8) 04/04/23 15:59 Monocytes # 0.4 k/uL (0-1.0) 04/04/23 15:59 Eosinophils # 0.3 k/uL (0-0.7) 04/04/23 15:59 Basophils # 0.0 k/uL (0-0.2) 04/04/23 15:59 Hypochromasia Slight 04/04/23 15:59 Sodium 136 mmol/L (137-145) L 04/04/23 15:59 Potassium 4.6 mmol/L (3.5-5.1) 04/04/23 15:59 Chloride 104 mmol/L (98-107) 04/04/23 15:59 Carbon Dioxide 24 mmol/L (22-30) 04/04/23 15:59 Anion Gap 8 mmol/L 04/04/23 15:59 BUN 16 mg/dL (9-20) 04/04/23 15:59 Creatinine 0.91 mg/dL (0.66-1.25) 04/04/23 15:59 Est GFR (CKD-EPI)AfAm >90 (>60 ml/min/1.73 sqM) 04/04/23 15:59 Est GFR (CKD-EPI)NonAf >90 (>60 ml/min/1.73 sqM) 04/04/23 15:59 Glucose 142 mg/dL (74-99) H 04/04/23 15:59 Calcium 9.1 mg/dL (8.4-10.2) 04/04/23 15:59 Total Bilirubin 0.4 mg/dL (0.2-1.3) 04/04/23 15:59 AST 41 U/L (17-59) 04/04/23 15:59 ALT 34 U/L (4-49) 04/04/23 15:59 Alkaline Phosphatase 66 U/L (38-126) 04/04/23 15:59 Total Protein 7.8 g/dL (6.3-8.2) 04/04/23 15:59 Albumin 4.2 g/dL (3.5-5.0) 04/04/23 15:59 Urine Color Yellow 04/04/23 16:29 Urine Appearance Clear (Clear) 04/04/23 16:29 Urine pH 5.5 (5.0-8.0) 04/04/23 16:29 Ur Specific [place] 1.025 (1.001-1.035) 04/04/23 16:29 Urine Protein Negative (Negative) 04/04/23 16:29 Urine Glucose (UA) Negative (Negative) 04/04/23 16:29 Urine Ketones Negative (Negative) 04/04/23 16:29 Urine Blood Negative (Negative) 04/04/23 16: Urine Nitrite Negative (Negative) 04/04/23 16:29 Urine Bilirubin Negative (Negative) 04/04/23 16:29 Urine Urobilinogen <2.0 mg/dL (<2.0) 04/04/23 16:29 Ur Leukocyte Esterase Negative (Negative) 04/04/23 16:29 Urine Opiates Screen Not Detected (NotDetected) 04/04/23 16:29 Ur Oxycodone Screen Not Detected (NotDetected) 04/04/23 16:29 Urine Methadone Screen Not Detected (NotDetected) 04/04/23 16:29 Ur Propoxyphene Screen Not Detected (NotDetected) 04/04/23 16:29 Ur Barbiturates Screen Not Detected (NotDetected) 04/04/23 16:29 U Tricyclic Antidepress Not Detected (NotDetected) 04/04/23 16:29 Ur Phencyclidine Scrn Not Detected (NotDetected) 04/04/23 16:29 Ur Amphetamines Screen Not Detected (NotDetected) 04/04/23 16:29 U Methamphetamines Scrn Not Detected (NotDetected) 04/04/23 16:29 U Benzodiazepines Scrn Not Detected (NotDetected) 04/04/23 16:29 Urine Cocaine Screen Not Detected (NotDetected) 04/04/23 16:29 U Marijuana (THC) Screen Not Detected (NotDetected) 04/04/23 16:29 Coronavirus (PCR) Not Detected (Not Detectd) 04/04/23 15:59 Allergies Allergy/AdvReac Type Severity Reaction Status Date / Time Penicillins Allergy Unknown Verified 04/04/23 12:56 Childhood Pork/Porcine Containing Allergy Unknown Verified 04/04/23 12:56 Products [Pork] Patient Condition at Discharge: Stable Plan - Discharge Summary New Discharge Prescriptions: New OLANZapine ODT [ZyPREXA Zydis] 10 mg PO BID 30 Days #60 tab Discharge Medication List OLANZapine ODT [ZyPREXA Zydis] 10 mg PO BID 30 Days #60 tab 04/09/23 [Rx] Follow up Appointment(s)/Referral(s): None,Stated [Primary Care Provider] - 1-2 days Activity/Diet/Wound Care/Special Instructions: Avoid the use of street drugs and alcohol. Take all medications as prescribed. When you are in need of refills on your medications, please contact your medical provider and/or outpatient psychiatrist to have this done. Please go to scheduled outpatient appointments for aftercare treatment. If symptoms return or become worse, call the crisis line at and/or go to the nearest emergency room for evaluation. Discharge Disposition: HOME SELF-CARE
== END 2023-04-09 15:47 | disposition home or self-care (01) | DRG 885 ==
LOC: EC 11:38 → 3MHU 17:39
PROVIDERS: ADMIT Psychiatry & Neurology Psychiatry; ATTEND Psychiatry & Neurology Psychiatry
DX: F22 Delusional disorders (principal); F33.9 Major depressive disorder, recurrent, unspecified; F17.210 Nicotine dependence, cigarettes, uncomplicated; F60.3 Borderline personality disorder; Z20.822 Contact with and (suspected) exposure to COVID-19; Z28.310 Unvaccinated for COVID-19; Z28.21 Immunization not carried out because of patient refusal; F12.10 Cannabis abuse, uncomplicated; Z88.0 Allergy status to penicillin; Z91.014 Allergy to mammalian meats; R45.1 Restlessness and agitation; Z71.51 Drug abuse counseling and surveillance of drug abuser
CPT/HCPCS: 36415; 80053; 80306; 81003; 82075; 85025; 87635; 99285